=== PATIENT | male | born 1960 | race Caucasian/White ===

== ENCOUNTER 2021-06-14 09:33 | Outpatient (REF) | payer OTHER, SELFPAY ==
--- NOTE | ~2021-06-14 | XR_ITS ---
EXAMINATION: XR KNEE, LEFT CLINICAL INFORMATION: Sprain. COMPARISON: None TECHNIQUE: Four views of the left knee. FINDINGS: The tricompartment joint space is maintained, normal. No bony erosive changes, loose bodies or suprapatellar joint effusion is seen. There is a mild to moderate-sized anterior suprapatellar enthesophyte and soft tissue calcification along the quadriceps tendon insertion. No soft tissue swelling seen. XR/XR knee LT 4V IMPRESSION: No acute fracture or dislocation or joint effusion. Moderate-sized anterior suprapatellar enthesophyte. Soft tissue calcification at the insertion site of the quadriceps tendon to the patella. This may be secondary to old injury.
[2021-06-16 05:06] LABS: Lyme Abs Screen <0.90 index
== END 2021-06-14 09:34 | disposition home or self-care (01) ==
LOC: HO.HMGCX 09:33
PROVIDERS: PCP Nurse Practitioner Family; Visit Provider Internal Medicine
DX: S83.92XA Sprain of unspecified site of left knee, initial encounter (principal)
CPT/HCPCS: 36415; 73564; 86617; 86618

== ENCOUNTER 2021-10-01 07:21 | Outpatient (REF) | payer OTHER, SELFPAY ==
[2021-10-01 11:47] LABS: Appearance Urine HAZY; Color Urine YELLOW; Glucose Urine UA NEG (NEG); Leukocyte Esterase Urine NEG (NEG); Nitrite Urine NEG (NEG); Specific Gravity - Urine 1.015 (1.005-1.025); Urine Blood NEG (NEG); Urine Ketones NEG (NEG); Urine Protein NEG (NEG-TRACE)
[2021-10-01 12:27] LABS: Prostate Specific Antigen Scr 0.49 ng/mL (<0.05-4.0)
[2021-10-01 12:39] LABS: Alanine Aminotransferase 24 U/L (0-40); Albumin Level 4.3 g/dL (3.5-5.0); Alkaline Phosphatase 66 U/L (39-117); Anion Gap 9 (12-20); Aspartate Amino Transferase 21 U/L (5-37); Bilirubin Total 0.5 mg/dL (0.0-1.0); Blood Urea Nitrogen 11 mg/dL (9-16); Calcium 8.9 mg/dL (8.4-10.2); Carbon Dioxide 29 mmol/L (22-29); Chloride 104 mmol/L (96-108); Cholesterol 187 mg/dL; Estimated Glomerular Filt Rate > 60; Glucose Fasting 97 mg/dL (60-99); HDL Cholesterol 49 mg/dL; LDL Cholesterol Calculated 124 mg/dl; Potassium 4.3 mmol/L (3.3-5.1); Sodium 138 mmol/L (135-145); Total Protein 6.8 g/dL (6.5-8.0); Triglycerides 70 mg/dL
[2021-10-01 13:16] LABS: Free T4 (Free Thyroxine) 0.76 ng/dL (0.71-1.85)
== END 2021-10-01 07:22 | disposition home or self-care (01) ==
LOC: HO.HMGCLDS 07:21
PROVIDERS: PCP Nurse Practitioner Family; Visit Provider Nurse Practitioner Family
DX: Z00.00 Encounter for general adult medical examination without abnormal findings (principal); Z12.5 Encounter for screening for malignant neoplasm of prostate
CPT/HCPCS: 36415; 80053; 80061; 81003; 84153; 84439; 84443

== ENCOUNTER 2021-10-02 12:36 | Outpatient (REF) | payer OTHER, SELFPAY ==
[2021-10-02 16:00] LABS: Free T4 (Free Thyroxine) 0.67 ng/dL (0.71-1.85)
== END 2021-10-02 12:37 | disposition home or self-care (01) ==
LOC: HO.HMGCLDS 12:36
PROVIDERS: PCP Nurse Practitioner Family; Visit Provider Nurse Practitioner Family
DX: R79.89 Other specified abnormal findings of blood chemistry (principal)
CPT/HCPCS: 36415; 84439; 84443

== ENCOUNTER 2021-12-04 12:38 | Outpatient (REF) | payer OTHER, SELFPAY ==
--- NOTE | ~2021-12-04 | US_ITS ---
EXAMINATION: US PELVIS, LIMITED/FOLLOW UP CLINICAL INFORMATION: Left lower quadrant pain. Rule out hernia. COMPARISON: None TECHNIQUE: Grayscale and color imaging of the left inguinal region using a linear transducer FINDINGS: No hernia is seen. No adenopathy is seen. The left common femoral vein and common femoral artery are patent. US/US pelvic limited IMPRESSION: No hernia is seen.
== END 2021-12-04 12:39 | disposition home or self-care (01) ==
LOC: HO.US 12:38
PROVIDERS: PCP Nurse Practitioner Family; Visit Provider Nurse Practitioner Family
DX: R10.32 Left lower quadrant pain (principal)
CPT/HCPCS: 76857

== ENCOUNTER 2021-12-10 07:31 | Outpatient (REF) | payer OTHER, SELFPAY ==
[2021-12-10 12:33] LABS: TSH reflex Free T4 1.94 uIU/mL (0.32-4.0)
== END 2021-12-10 07:32 | disposition home or self-care (01) ==
LOC: HO.HMGCLDS 07:31
PROVIDERS: Visit Provider Nurse Practitioner Family
DX: E03.9 Hypothyroidism, unspecified (principal)
CPT/HCPCS: 36415; 84443

== ENCOUNTER 2022-05-23 07:17 | Outpatient (REF) | payer OTHER, SELFPAY ==
[2022-05-23 11:50] LABS: Appearance Urine TURBID; Color Urine YELLOW; Glucose Urine UA NEG (NEG); Leukocyte Esterase Urine NEG (NEG); Nitrite Urine NEG (NEG); PH 5.5 (5.0-8.0); Specific Gravity - Urine >= 1.030 (1.005-1.025); UACC Culture Trigger NO; Urine Blood TRACE (NEG); Urine Ketones NEG (NEG); Urine Protein TRACE MG/DL (NEG-TRACE)
[2022-05-23 12:02] LABS: Alanine Aminotransferase 18 U/L (0-40); Albumin Level 4.3 g/dL (3.5-5.0); Alkaline Phosphatase 78 U/L (39-117); Anion Gap 13 (12-20); Aspartate Amino Transferase 18 U/L (5-37); Bilirubin Total 0.9 mg/dL (0.0-1.0); Blood Urea Nitrogen 15 mg/dL (9-16); Calcium 8.7 mg/dL (8.4-10.2); Carbon Dioxide 24 mmol/L (22-29); Chloride 105 mmol/L (96-108); Cholesterol 174 mg/dL; Estimated Glomerular Filt Rate > 60; Glucose Fasting 112 mg/dL (60-99); HDL Cholesterol 49 mg/dL; LDL Cholesterol Calculated 105 mg/dl; Potassium 3.9 mmol/L (3.3-5.1); Sodium 138 mmol/L (135-145); Total Protein 6.9 g/dL (6.5-8.0); Triglycerides 103 mg/dL
[2022-05-23 12:03] LABS: TSH reflex Free T4 1.63 uIU/mL (0.32-4.0)
[2022-05-23 14:21] LABS: RBC Urine 0 /HPF (0); WBC Urine 0 /HPF (0-4)
[2022-05-23 14:22] LABS: Amorphous Sediment Urine 4+ /LPF
[2022-05-27 18:11] LABS: Thyroid Peroxidase Antibodies >900 IU/mL (<9)
== END 2022-05-23 07:18 | disposition home or self-care (01) ==
LOC: HO.HMGCLDS 07:17
PROVIDERS: Visit Provider Nurse Practitioner Family
DX: E03.9 Hypothyroidism, unspecified (principal); R79.89 Other specified abnormal findings of blood chemistry
CPT/HCPCS: 36415; 80053; 80061; 81001; 84443; 86376

== ENCOUNTER 2022-06-11 07:26 | Outpatient (REF) | payer OTHER, SELFPAY ==
[2022-06-11 11:41] LABS: Urine Cytology See Pathology rpt
[2022-06-11 12:13] LABS: Appearance Urine CLEAR; Color Urine YELLOW; Glucose Urine UA NEG (NEG); Leukocyte Esterase Urine NEG (NEG); Nitrite Urine NEG (NEG); Specific Gravity - Urine 1.025 (1.005-1.025); Urine Blood NEG (NEG); Urine Ketones NEG (NEG); Urine Protein NEG (NEG-TRACE)
[2022-06-11 12:37] LABS: Mucus Urine 1+ /LPF; RBC Urine 0 /HPF (0); WBC Urine 0 /HPF (0-4)
== END 2022-06-11 07:27 | disposition home or self-care (01) ==
LOC: HO.HMGCLDS 07:26
PROVIDERS: Visit Provider Nurse Practitioner Family
DX: R31.29 Other microscopic hematuria (principal)
CPT/HCPCS: 81001; 81003; 87086; 88112

== ENCOUNTER 2022-08-05 09:28 | Outpatient (REF) | payer OTHER, SELFPAY ==
[2022-08-05 11:46] LABS: Alanine Aminotransferase 20 U/L (0-40); Albumin Level 4.4 g/dL (3.5-5.0); Alkaline Phosphatase 71 U/L (39-117); Aspartate Amino Transferase 20 U/L (5-37); Bilirubin Direct 0.2 mg/dL (0.0-0.5); Bilirubin Total 0.6 mg/dL (0.0-1.0); Total Protein 7.1 g/dL (6.5-8.0)
== END 2022-08-05 09:29 | disposition home or self-care (01) ==
LOC: HO.HMGCLDS 09:28
PROVIDERS: PCP Nurse Practitioner Family; Visit Provider Podiatrist
DX: B35.1 Tinea unguium (principal)
CPT/HCPCS: 36415; 80076

== ENCOUNTER 2022-12-04 13:55 | Outpatient (REF) | payer BC, SELFPAY ==
[2022-12-04 16:32] LABS: Urine Cytology See Pathology rpt
== END 2022-12-04 13:56 | disposition home or self-care (01) ==
LOC: HO.LAB 13:55
PROVIDERS: PCP Nurse Practitioner Family; Visit Provider Urology
DX: R31.29 Other microscopic hematuria (principal); N40.0 Benign prostatic hyperplasia without lower urinary tract symptoms
CPT/HCPCS: 51798; 88112

== ENCOUNTER 2023-01-06 07:24 | Outpatient (REF) | payer BC, SELFPAY ==
[2023-01-06 11:43] LABS: PSA,Total (Free>4and<10) 0.63 ng/mL (0.00-4.00)
== END 2023-01-06 07:25 | disposition home or self-care (01) ==
LOC: HO.HMGCLDS 07:24
PROVIDERS: PCP Nurse Practitioner Family; Visit Provider Urology
DX: Z12.5 Encounter for screening for malignant neoplasm of prostate (principal); N40.0 Benign prostatic hyperplasia without lower urinary tract symptoms
CPT/HCPCS: 36415; 84153

== ENCOUNTER 2023-01-08 08:58 | Outpatient (REF) | payer BC, SELFPAY ==
--- NOTE | ~2023-01-08 | CT_ITS ---
EXAMINATION: CT ABDOMEN AND PELVIS WITHOUT AND WITH CONTRAST CLINICAL INFORMATION: Hematuria COMPARISON: Previous pelvic ultrasound November 2021 TECHNIQUE: Noncontrast CT of the abdomen and pelvis is performed followed by split bolus contrast-enhanced images using 85 mL Omnipaque 350 contrast.? Postcontrast imaging is performed during the combined nephrogram and excretion phase. Sagittal and coronal reformatted images were obtained on the technologist's workstation for both the precontrast and postcontrast phases. This CT examination was performed using dose optimization techniques as appropriate, variously including the following: *Automated exposure control *Adjustment of mA and/or kV according to patient size (this includes techniques or standardized protocols for targeted exams where dose is matched to indication/reason for exam; i.e. extremities or head) *Use of iterative reconstruction technique DLP: 839 mGy-cm FINDINGS: LUNG BASES: Small calcified pulmonary nodules lung bases suggestive of calcified granulomas. LIVER, GALLBLADDER, AND BILIARY TREE: The liver is low in attenuation suggestive of fatty infiltration. The gallbladder is been removed. No focal liver lesion or biliary duct dilatation. PANCREAS: Unremarkable. SPLEEN: Unremarkable. ADRENAL GLANDS: Unremarkable. KIDNEYS AND URETERS: The kidneys are normal in size, shape, and attenuation. No hydronephrosis, hydroureter, or calculi seen. No perinephric stranding. The collecting systems are normal. The ureters are normal. BLADDER: There is abnormal soft tissue seen at the base of the bladder for example sagittal reconstructed image 60 and coronal reconstructed image 59. It is uncertain whether this is related to the prostate gland. GASTROINTESTINAL TRACT: Diverticulosis of the colon. The small and large bowel are otherwise unremarkable. The appendix is unremarkable. ABDOMINAL WALL: Small umbilical and left inguinal hernias containing fat. LYMPH NODES: Normal. VASCULAR: Unremarkable. PELVIC VISCERA: The prostate gland does not appear enlarged. The prostate gland protrudes slightly into the base of the bladder. OSSEUS STRUCTURES: Degenerative changes of the spine and hip joints, left greater than right. Sclerotic lesion in the L1 vertebral body measuring 8 mm and small sclerotic foci in the bilateral femoral head and acetabulum measuring 3 mm, nonspecific. CT/CT urogram IMPRESSION: Normal-appearing kidneys, collecting systems and ureters. Small area of abnormal soft tissue at the base of the bladder. It is uncertain whether this is related to the prostate gland. The prostate gland does not appear enlarged. Mild fatty infiltration of the liver. Diverticulosis. Small nonspecific sclerotic bone lesions in the L1 vertebral body and pelvis.
[2023-01-08] MEDS: iohexoL 350 MG/ML 100 ML INFUS..BTL IV (10:12)
[2023-01-09 08:48] LABS: Creatinine POC 0.9 mg/dL (0.5-1.4); GFR POC > 60
== END 2023-01-08 08:59 | disposition home or self-care (01) ==
LOC: HO.CT 08:58
PROVIDERS: Visit Provider Urology
DX: R31.9 Hematuria, unspecified (principal)
CPT/HCPCS: 74178; 82565; Q9967

== ENCOUNTER 2023-07-30 14:56 | Outpatient (AMB) | payer BC, SELFPAY ==
[2023-07-30 15:05] VITALS: BP 130/82; PULSE 64; O2SAT 96; BMI 25.4
--- NOTE | 2023-07-30 15:05 | A.OFFPC_ITS ---
Vital Signs 07/30/23 15:05 Height 5 ft 11.6 in Weight 185 lb 2 oz BMI 25.4 BP 130/82 Blood Pressure Location Rt brachial Position Sitting Pulse 64 Pulse Source Pulse Oximeter Pulse Oximetry (%) 96 Oxygen Delivery Method Room Air Intake Visit Reasons: Med review Allergies atorvastatin Allergy (Unknown, Verified 07/30/23 15:07) Hives Medication List - Last Reconciled 07/30/23 by NAI Enamorado levothyroxine 100 mcg PO DAILY Tobacco use date assessed: 07/30/23 Fall risk assessment: No Falls in past year Last assessed Fall Risk: 07/30/23 Dental Screening Did you have a dental visit in the last 12 months?: No Did you have a dental problem in the last 6 months where you did not have access to dental care?: No Was dental information given to patient?: No HPI Med review HPI Details Pt is here for a PE. Will order labs. Colon screen is up to date. PSA is up to date. Denies dribbling with urination, weak stream, and nocturia. Pt is a smoker, part of the low-dose CT program. Refuses KATIE today. 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 Social History Housing: House Alcohol intake: current Alcohol intake frequency: holidays/special occasions only Patient Tobacco Use Status: Current everyday Tobacco user Cigarettes Per Day: 12 e-Cigarette/Vaping Use: Never Used Second Hand Smoke Exposure: No service: No Current occupational status: employed Current occupation: [employer] Current occupational exposures/hazards: No Cognitive needs: No Hearing needs: No Vision needs: No Questionnaire Thrive Questionnaire Date Thrive assessed: 09/26/21 Review of Systems Const Denies chills and Denies fever(s) Eyes Denies blurry vision ENT Denies vertigo, Denies dizziness and Denies sore throat Card Denies chest pain at rest, Denies chest pain with activity, Denies diaphoresis, Denies dyspnea and Denies dyspnea on exertion Resp Denies cough, Denies dyspnea, Denies dyspnea on exertion and Denies wheezing GI Denies abdominal pain, Denies melena, Denies hematochezia, Denies constipation, Denies diarrhea and Denies loose stools Denies hematuria Musc Denies numbness and Denies tingling Skin/Breast Denies lesions Neuro Denies vertigo, Denies dizziness, Denies numbness and Denies tingling Psych Denies anxiety, Denies depression, Denies homicidal ideation, Denies suicidal ideation and Denies other (substance abuse) Aller/Immun Denies wheezing Physical exam (Primary Care) Vital Signs: Last Vital Signs Pulse 64 07/30/23 15:05 BP 130/82 07/30/23 15:05 Pulse Ox 96 07/30/23 15:05 Oxygen Delivery Method Room Air 07/30/23 15:05 BMI result Body Mass Index 25.4 Tobacco/Smoking Status: Tobacco use Status Tobacco use date assessed 07/30/23 07/30/23 15:10 Patient Tobacco Use Status Current everyday Tobacco 07/30/23 15:10 e-Cigarette/Vaping Use Never Used 07/30/23 15:10 Thrive Assessment: Date of Thrive Assessment Date Thrive assessed 09/26/21 07/30/23 15:10 Const General: cooperative Nutritional Appearance: well nourished Orientation/consciousness: patient oriented x3 HENMT Head: Yes normal to inspection, Yes normocephalic and Yes atraumatic Ears: TM's normal bilaterally Eyes General: appearance normal, both eyes and all related structures Alignment and Position: alignment normal and position normal Neck Neck: Yes normal visual inspection and Yes no lymphadenopathy Thyroid: Thyroid normal Resp Other: lungs diminished though moving air Effort & Inspection: normal respiratory effort Cardio Rate: regular rate Rhythm: regular rhythm Heart sounds: S1 normal heart sound present, S2 normal heart sound present and no murmurs GI Palpation (GI): Soft to palpation and nontender Auscultation: normal bowel sounds Male General Exam: Yes normal external exam Penis: normal penis Scrotum: scrotum normal, testes descended bilaterally and no inguinal hernias Testes: no testicular mass Skin Other: right congregation (raised lesion-dark), right forehead (dark lesion), 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 left anterior trap/collar bone region with large dark, slightly raised lesion Rashes: no rashes Neuro General: patient oriented x3, moves all extremities, no focal motor deficits and deep tendon reflexes 2+ bilaterally Romberg Test: Negative Psych Appearance: grossly normal Mental Status: mental status grossly normal Speech and movement: Normal speech and movement present Affect: normal affect Attitude: cooperative Thought process: Normal thought process present Thought content: Normal thought content present Insight: Good insight present (Psych) Judgement: Good judgement present (Psych) Assessment and Plan Assessment & Plan (1) Physical exam: Code(s): Z00.00 - Encounter for general adult medical examination without abnormal findings Plan: Labs ordered (2) Screening PSA (prostate specific antigen): Code(s): Z12.5 - Encounter for screening for malignant neoplasm of prostate (3) Skin lesions: Code(s): L98.9 - Disorder of the skin and subcutaneous tissue, unspecified Plan The patient agreed to the use of a biomedical engineering supervisor for this encounter. Scribed for NAI Cole by Natalia Edmonds biomedical engineering supervisor, on 07/30/2023 at 15:15 EST. Orders: Orders Complete Blood Count Auto Diff Today Z00.00 - Encounter for general adult medical examination without abnormal findings Comprehensive [place]. Panel Fast Today Z00.00 - Encounter for general adult medical examination without abnormal findings TSH reflex Free T4 Today Z00.00 - Encounter for general adult medical examination without abnormal findings Lipid Panel Today Z00.00 - Encounter for general adult medical examination without abnormal findings Prostate Specific Antigen Scr Today Z12.5 - Encounter for screening for malignant neoplasm of prostate UA CC w/rflx Micro + Cult Today Z00.00 - Encounter for general adult medical examination without abnormal findings Referrals Dermatology Referral L98.9 - Disorder of the skin and subcutaneous tissue, unspecified Coding Level of Care Code Est Pt Prev Care >65y(13550) Diagnoses Physical exam Z00.00 Screening PSA (prostate specific antigen) Z12.5 Skin lesions L98.9
== END 2023-07-30 15:51 | disposition home or self-care (01) ==
PROVIDERS: PCP Nurse Practitioner Family; Visit Provider Nurse Practitioner Family
DX: Z00.00 Encounter for general adult medical examination without abnormal findings (principal); Z12.5 Encounter for screening for malignant neoplasm of prostate; L98.9 Disorder of the skin and subcutaneous tissue, unspecified
CPT/HCPCS: 99397

== ENCOUNTER 2023-08-12 07:22 | Outpatient (REF) | payer BC, SELFPAY ==
[2023-08-12 11:25] LABS: MANUAL DIFF FLAG NO
[2023-08-12 11:37] LABS: Eosinophils Absolute Auto 0.2 X10*3/uL (0.0-0.4); Eosinophils Percent Auto 4.7 % (0-4); Hematocrit 43.9 % (42.0-52.0); Hemoglobin 14.6 g/dl (14.0-18.0); Imm Gran Abs Auto 0.01 X10*3/uL (0.00-0.03); Imm Gran Pct Auto 0.2 % (0.0-0.4); Lymphocytes Absolute Auto 1.1 X10*3/uL (1.2-4.9); Lymphocytes Percent Auto 28.2 % (20-40); Mean Corpuscular HGB Conc 33.3 g/dl (31.0-36.0); Mean Corpuscular Volume 90.3 fL (80.0-98.0); Mean Platelet Volume 10.8 fL (9.4-12.4); Monocytes Absolute Auto 0.3 X10*3/uL (0.1-1.2); Monocytes Percent Auto 8.4 % (2-11); Neutrophils Absolute Auto 2.3 x10*3/uL (2.0-8.3); Neutrophils Percent Auto 57.5 % (45-73); Platelet Count 255 X10*3/uL (160-400); Red Blood Count 4.86 X10*6/uL (4.60-5.80); Red Cell Distribution Width 12.6 % (11.0-16.0)
[2023-08-12 12:15] LABS: Prostate Specific Antigen Scr 0.76 ng/mL (<0.05-4.0)
[2023-08-12 12:16] LABS: Alanine Aminotransferase 13 U/L (0-40); Albumin Level 4.3 g/dL (3.5-5.0); Alkaline Phosphatase 69 U/L (39-117); Anion Gap 11 (12-20); Aspartate Amino Transferase 17 U/L (5-37); Bilirubin Total 0.5 mg/dL (0.0-1.0); Blood Urea Nitrogen 12 mg/dL (9-16); Calcium 9.2 mg/dL (8.4-10.2); Carbon Dioxide 25 mmol/L (22-29); Chloride 107 mmol/L (96-108); Cholesterol 187 mg/dL (<200); Estimated Glomerular Filt Rate > 60; Glucose Fasting 102 mg/dL (60-99); HDL Cholesterol 50 mg/dL (>40); LDL Cholesterol Calculated 127 mg/dL (<100); Potassium 4.3 mmol/L (3.3-5.1); Sodium 139 mmol/L (135-145); TSH reflex Free T4 0.79 uIU/mL (0.32-4.0); Triglycerides 53 mg/dL (<150)
[2023-08-12 14:15] LABS: Appearance Urine Clear; Color Urine Yellow; Glucose Urine UA Negative (Negative); Leukocyte Esterase Urine Negative (Negative); Nitrite Urine Negative (Negative); Urine Blood Negative (Negative); Urine Ketones Negative (Negative); Urine Protein Negative (Neg-Trace)
== END 2023-08-12 07:23 | disposition home or self-care (01) ==
LOC: HO.HMGCLDS 07:22
PROVIDERS: PCP Nurse Practitioner Family; Visit Provider Nurse Practitioner Family
DX: Z00.00 Encounter for general adult medical examination without abnormal findings (principal); Z12.5 Encounter for screening for malignant neoplasm of prostate; E78.5 Hyperlipidemia, unspecified; R94.6 Abnormal results of thyroid function studies; E03.9 Hypothyroidism, unspecified; D72.819 Decreased white blood cell count, unspecified; Z72.0 Tobacco use
CPT/HCPCS: 36415; 80053; 80061; 81003; 84153; 84443; 85025

== ENCOUNTER 2023-10-06 09:08 | Outpatient (REF) | payer BC, SELFPAY ==
[2023-10-06 11:20] LABS: MANUAL DIFF FLAG NO
[2023-10-06 11:39] LABS: Basophils Absolute Auto 0.1 X10*3/uL (0.0-0.2); Eosinophils Absolute Auto 0.1 X10*3/uL (0.0-0.4); Eosinophils Percent Auto 2.3 % (0-4); Hematocrit 43.9 % (42.0-52.0); Hemoglobin 14.9 g/dl (14.0-18.0); Imm Gran Abs Auto 0.02 X10*3/uL (0.00-0.03); Imm Gran Pct Auto 0.4 % (0.0-0.4); Lymphocytes Absolute Auto 1.4 X10*3/uL (1.2-4.9); Lymphocytes Percent Auto 26.8 % (20-40); Mean Corpuscular HGB Conc 33.9 g/dl (31.0-36.0); Mean Corpuscular Hemoglobin 30.1 pg (27.0-33.0); Mean Corpuscular Volume 88.7 fL (80.0-98.0); Mean Platelet Volume 10.6 fL (9.4-12.4); Monocytes Absolute Auto 0.4 X10*3/uL (0.1-1.2); Monocytes Percent Auto 6.7 % (2-11); Neutrophils Absolute Auto 3.3 x10*3/uL (2.0-8.3); Neutrophils Percent Auto 62.8 % (45-73); Platelet Count 272 X10*3/uL (160-400); Red Blood Count 4.95 X10*6/uL (4.60-5.80); Red Cell Distribution Width 12.5 % (11.0-16.0); White Blood Count 5.2 X10*3/uL (4.8-10.8)
== END 2023-10-06 09:09 | disposition home or self-care (01) ==
LOC: HO.HMGCLDS 09:08
PROVIDERS: PCP Nurse Practitioner Family; Visit Provider Nurse Practitioner Family
DX: D72.819 Decreased white blood cell count, unspecified (principal)
CPT/HCPCS: 36415; 85025

== ENCOUNTER 2023-10-27 07:20 | Outpatient (REF) | payer BC, SELFPAY ==
[2023-10-27 12:13] LABS: Alanine Aminotransferase 13 U/L (0-40); Albumin Level 4.2 g/dL (3.5-5.0); Alkaline Phosphatase 71 U/L (39-117); Anion Gap 11 (12-20); Aspartate Amino Transferase 17 U/L (5-37); Bilirubin Total 0.6 mg/dL (0.0-1.0); Blood Urea Nitrogen 13 mg/dL (9-16); Calcium 9.1 mg/dL (8.4-10.2); Carbon Dioxide 28 mmol/L (22-29); Chloride 105 mmol/L (96-108); Cholesterol 180 mg/dL (<200); Estimated Glomerular Filt Rate > 60; Glucose Fasting 97 mg/dL (60-99); HDL Cholesterol 53 mg/dL (>40); LDL Cholesterol Calculated 117 mg/dL (<100); Potassium 4.3 mmol/L (3.3-5.1); Sodium 140 mmol/L (135-145); Total Protein 6.9 g/dL (6.5-8.0); Triglycerides 51 mg/dL (<150)
== END 2023-10-27 07:21 | disposition home or self-care (01) ==
LOC: HO.HMGCLDS 07:20
PROVIDERS: PCP Nurse Practitioner Family; Visit Provider Nurse Practitioner Family
DX: E78.5 Hyperlipidemia, unspecified (principal)
CPT/HCPCS: 36415; 80053; 80061

== ENCOUNTER 2024-02-09 08:16 | Outpatient (AMB) | payer BC, SELFPAY ==
--- NOTE | 2024-02-09 08:22 | A.OFFPC_ITS ---
Vital Signs 02/09/24 08:23 Height 5 ft 11 in Weight 190 lb BMI 26.5 BP 132/82 Blood Pressure Location Lt brachial Position Sitting Pulse 66 Pulse Source Pulse Oximeter Pulse Oximetry (%) 96 Intake Visit Reasons: 6 month fu Intake Note: pt is here for 6 month follow up Tax Investigator Required: No Accompanied by: Self / Same As Patient Allergies atorvastatin Allergy (Unknown, Verified 02/09/24 09:08) Hives Medication List - Last Reconciled 02/09/24 by NAI Enamorado ezetimibe 10 mg PO DAILY 90 days levothyroxine 100 mcg PO DAILY Tobacco use date assessed: 02/09/24 Fall risk assessment: No Falls in past year Last assessed Fall Risk: 02/09/24 Dental Screening Dental Screen Date: 02/09/24 Did you have a dental visit in the last 12 months?: No Did you have a dental problem in the last 6 months where you did not have access to dental care?: No Was dental information given to patient?: Patient declined HPI 6 month fu HPI Details Dyslipidemia: On ezetimibe 10mg. Pt can not tolerate statins. Will order labs. Pt is a smoker, part of the low-dose CT program. Denies chest pain, shortness of breath, and dizziness. 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 Social History Housing: House Alcohol intake: current Alcohol intake frequency: holidays/special occasions only Patient Tobacco Use Status: Current everyday Tobacco user Cigarettes Per Day: 12 e-Cigarette/Vaping Use: Never Used Second Hand Smoke Exposure: No service: No Current occupational status: employed Current occupation: [employer] Current occupational exposures/hazards: No Cognitive needs: No Hearing needs: No Vision needs: No Questionnaire PHQ-9 Over the last 2 weeks, how often have you been bothered by any of the following problems? 1. Little interest or pleasure in doing things: not at all 2. Feeling down, depressed, or hopeless: not at all 3. Trouble falling or staying asleep, or sleeping too much: not at all 4. Feeling tired or having little energy: not at all 5. Poor appetite or overeating: not at all 6. Feeling bad about yourself - or that you are a failure or have let yourself or your family down: not at all 7. Trouble concentrating on things, such as reading the newspaper or watching television: not at all 8. Moving or speaking so slowly that other people could have noticed. Or the opposite - being so fidgety or restless that you have been moving around a lot more than usual: not at all 9. Thoughts that you would be better off or of hurting yourself in some way: not at all Total score: 0 Depression Screening Interpretation: Negative Depression Screening Done: Yes 79420 - PHQ-9 Billing: Yes Source: Developed by Drs. Cornelius Woodruff, Bethany Petersen, Arvind Cortez and colleagues, with an educational chandni from [employer]. Thrive Questionnaire Date Thrive assessed: 02/09/24 I am a: Patient What is your living situation today?: I have a steady place to live Within the past 12 months, did the food you bought not last and you didn't have the money to get more?: Never true Within the past 12 months, did you worry whether your food would run out before you got money to buy more?: Never true Do you have trouble paying for medicines?: No Do you have trouble getting transportation to medical appointments?: No Do you have trouble paying your heating and electricity bill?: No Do you have trouble taking care of your child, family member or friend?: No Do you have trouble with day-to-day activities such as bathing, preparing meals, shopping, managing finances, etc.?: No Are you currently unemployed and looking for a job?: No Are you interested in more education?: No Please select the resources that you would like help with: None Currently or been in a relationship where the following occur: no concerns reported THRIVE Score: 0 AUDIT C Alcohol Use Questionnaire (AUDIT-C) 1. How often do you have a drink containing alcohol?: Never 3. How often do you have six or more drinks on one occasion?: Never Total Score: 0 Score Reviewed/Action Taken: Yes ANDREW-7 AMB Questionnaire ANDREW-7 Date ANDREW - 7 assessed: 02/09/24 Feeling nervous, anxious, or on edge: 0 = Not at all Not being able to stop or control worryin = Not at all Worrying too much about different things: 0 = Not at all Trouble relaxin = Not at all Being so restless that it is hard to sit still: 0 = Not at all Becoming easily annoyed or irritable: 0 = Not at all Feeling afraid as if something awful might happen: 0 = Not at all Total ADNREW-7 score (0-4 normal; 5-9 mild; 10-14 moderate; 15-21 severe): 0 Source: Developed by Drs. Cornelius Woodruff, Bethany Petersen, Arvind Cortez and colleagues, with an educational chandni from [employer]. ANDREW-7 Assessment Billing ANDREW-7 Assessment Tool: ANDREW-7 Assessment 78244 Review of Systems Const Reports as per HPI Physical exam (Primary Care) Vital Signs: Last Vital Signs Pulse 66 02/09/24 08:23 BP 132/82 02/09/24 08:23 Pulse Ox 96 02/09/24 08:23 BMI result Body Mass Index 26.5 Tobacco/Smoking Status: Tobacco use Status Tobacco use date assessed 02/09/24 02/09/24 08:32 Patient Tobacco Use Status Current everyday Tobacco 02/09/24 08:24 e-Cigarette/Vaping Use Never Used 02/09/24 08:24 PHQ-9: PHQ-9 Score PHQ-9: Total score 0 02/09/24 08:51 Depression Screening Interpretation: Negative Thrive Assessment: Date of Thrive Assessment Date Thrive assessed 02/09/24 02/09/24 08:32 Currently or been in a relationship where the following occur: no concerns reported Const General: cooperative Orientation/consciousness: patient oriented x3 Resp Effort & Inspection: normal respiratory effort Auscultation: clear to auscultation bilaterally Cardio Rate: regular rate Rhythm: regular rhythm Heart sounds: S1 normal heart sound present and S2 normal heart sound present Bruits: no carotid bruits Neuro General: patient oriented x3 Psych Appearance: grossly normal Mental Status: mental status grossly normal Speech and movement: Normal speech and movement present Affect: normal affect Attitude: cooperative Thought process: Normal thought process present Thought content: Normal thought content present Insight: Good insight present (Psych) Judgement: Good judgement present (Psych) Assessment and Plan Assessment & Plan (1) Dyslipidemia: Code(s): E78.5 - Hyperlipidemia, unspecified Plan: Labs ordered Plan The patient agreed to the use of a medical massage therapist for this encounter. Scribed for NAI Cole by Natalia Edmonds medical massage therapist, on 02/09/2024 at 08:50 EST. Orders: Orders Complete Blood Count Auto Diff Today E78.5 - Hyperlipidemia, unspecified Comprehensive [place]. Panel Fast Today E78.5 - Hyperlipidemia, unspecified Lipid Panel Today E78.5 - Hyperlipidemia, unspecified Coding Level of Care Code Est Pt Level 3 (96935) Diagnoses Dyslipidemia E78.5 Additional Codes ANDREW-7 Assessment Billing - ANDREW-7 Assessment Tool: ANDREW-7 Assessment 22840 ([id number])
[2024-02-09 08:23] VITALS: BP 132/82; PULSE 66; O2SAT 96; BMI 26.5
== END 2024-02-09 09:06 | disposition home or self-care (01) ==
PROVIDERS: PCP Nurse Practitioner Family; Visit Provider Nurse Practitioner Family
DX: E78.5 Hyperlipidemia, unspecified (principal)
CPT/HCPCS: 99213

== ENCOUNTER 2024-02-13 07:12 | Outpatient (REF) | payer BC, SELFPAY ==
[2024-02-13 10:26] LABS: MANUAL DIFF FLAG NO
[2024-02-13 10:52] LABS: Basophils Absolute Auto 0.1 X10*3/uL (0.0-0.2); Basophils Percent Auto 1.1 % (0-2); Eosinophils Absolute Auto 0.2 X10*3/uL (0.0-0.4); Hematocrit 43.3 % (42.0-52.0); Hemoglobin 14.7 g/dl (14.0-18.0); Imm Gran Abs Auto 0.02 X10*3/uL (0.00-0.03); Imm Gran Pct Auto 0.4 % (0.0-0.4); Lymphocytes Absolute Auto 1.4 X10*3/uL (1.2-4.9); Lymphocytes Percent Auto 30.6 % (20-40); Mean Corpuscular HGB Conc 33.9 g/dl (31.0-36.0); Mean Corpuscular Hemoglobin 30.2 pg (27.0-33.0); Mean Corpuscular Volume 89.1 fL (80.0-98.0); Mean Platelet Volume 10.6 fL (9.4-12.4); Monocytes Absolute Auto 0.3 X10*3/uL (0.1-1.2); Monocytes Percent Auto 7.4 % (2-11); Neutrophils Absolute Auto 2.5 x10*3/uL (2.0-8.3); Neutrophils Percent Auto 55.5 % (45-73); Platelet Count 233 X10*3/uL (160-400); Red Blood Count 4.86 X10*6/uL (4.60-5.80); Red Cell Distribution Width 12.7 % (11.0-16.0); White Blood Count 4.6 X10*3/uL (4.8-10.8)
[2024-02-13 11:08] LABS: Alanine Aminotransferase 16 U/L (0-40); Albumin Level 4.2 g/dL (3.5-5.0); Alkaline Phosphatase 73 U/L (39-117); Anion Gap 9 (12-20); Aspartate Amino Transferase 17 U/L (5-37); Bilirubin Total 0.4 mg/dL (0.0-1.0); Blood Urea Nitrogen 12 mg/dL (9-16); Carbon Dioxide 28 mmol/L (22-29); Chloride 106 mmol/L (96-108); Cholesterol 187 mg/dL (<200); Estimated Glomerular Filt Rate > 60; Glucose Fasting 101 mg/dL (60-99); HDL Cholesterol 54 mg/dL (>40); LDL Cholesterol Calculated 124 mg/dL (<100); Sodium 139 mmol/L (135-145); Triglycerides 47 mg/dL (<150)
== END 2024-02-13 07:13 | disposition home or self-care (01) ==
LOC: HO.HMGCLDS 07:12
PROVIDERS: PCP Nurse Practitioner Family; Visit Provider Nurse Practitioner Family
DX: E78.5 Hyperlipidemia, unspecified (principal)
CPT/HCPCS: 36415; 80053; 80061; 85025

== ENCOUNTER 2024-09-27 08:51 | Outpatient (AMB) | payer BC, SELFPAY ==
[2024-09-27 08:52] VITALS: BP 130/80; PULSE 72; O2SAT 97; BMI 25.9
--- NOTE | 2024-09-27 08:52 | A.OFFPC_ITS ---
Vital Signs 09/27/24 08:52 Height 5 ft 11 in Weight 186 lb BMI 25.9 BP 130/80 Blood Pressure Location Rt brachial Position Sitting Pulse 72 Pulse Source Pulse Oximeter Pulse Oximetry (%) 97 Intake Visit Reasons: PE Intake Note: pt is here for PE Optical Fabricator Required: No Accompanied by: Self / Same As Patient Allergies atorvastatin Allergy (Unknown, Verified 09/27/24 08:53) Hives Medication List - Last Reconciled 09/27/24 by NAI Enamorado levothyroxine 100 mcg PO DAILY Tobacco use date assessed: 02/09/24 Fall risk assessment: No Falls in past year Last assessed Fall Risk: 09/27/24 Dental Screening Dental Screen Date: 02/09/24 HPI PE HPI Details Pt is here for a PE. Will order labs. Colon screen is up to date. Due for PSA, will order. Denies dribbling with urination, weak stream, and frequent nocturia. Does get intermittent frequency (seen urology previously). Pt c/o lower back pain. He reports radicular symptoms down his LLE. Will send prednisone. Will order XR. Denies any signs of cauda equina. Pt has seen dermatology in the past. 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 Social History Housing: House Alcohol intake: current Alcohol intake frequency: holidays/special occasions only Patient Tobacco Use Status: Current everyday Tobacco user Cigarettes Per Day: 12 e-Cigarette/Vaping Use: Never Used Second Hand Smoke Exposure: No service: No Current occupational status: employed Current occupation: [employer] Current occupational exposures/hazards: No Cognitive needs: No Hearing needs: No Vision needs: No Questionnaire PHQ-9 Over the last 2 weeks, how often have you been bothered by any of the following problems? 68992 - PHQ-9 Billing: Patient declined-do not bill Source: Developed by Drs. Cornelius Woodruff, Bethany Petersen, Arvind Cortez and colleagues, with an educational chandni from [employer]. Thrive Questionnaire Date Thrive assessed: 09/27/24 I am a: Patient What is your living situation today?: I have a steady place to live Within the past 12 months, did the food you bought not last and you didn't have the money to get more?: Never true Within the past 12 months, did you worry whether your food would run out before you got money to buy more?: Never true Do you have trouble paying for medicines?: No Do you have trouble getting transportation to medical appointments?: No Do you have trouble paying your heating and electricity bill?: I choose not to answer this question Do you have trouble taking care of your child, family member or friend?: No Do you have trouble with day-to-day activities such as bathing, preparing meals, shopping, managing finances, etc.?: No Are you currently unemployed and looking for a job?: No Are you interested in more education?: No Please select the resources that you would like help with: None Currently or been in a relationship where the following occur: No concerns reported THRIVE Score: 0 AUDIT C Alcohol Use Questionnaire (AUDIT-C) 1. How often do you have a drink containing alcohol?: Monthly or less 2. How many drinks containing alcohol do you have on a typical day when you are drinking?: 3 or 4 3. How often do you have six or more drinks on one occasion?: Never Total Score: 2 Score Reviewed/Action Taken: Yes ANDREW-7 AMB Questionnaire ANDREW-7 Date ANDREW - 7 assessed: 09/27/24 Feeling nervous, anxious, or on edge: 0 = Not at all Not being able to stop or control worryin = Not at all Worrying too much about different things: 0 = Not at all Trouble relaxin = Nearly every day Being so restless that it is hard to sit still: 0 = Not at all Becoming easily annoyed or irritable: 0 = Not at all Feeling afraid as if something awful might happen: 0 = Not at all Total ANDREW-7 score (0-4 normal; 5-9 mild; 10-14 moderate; 15-21 severe): 3 Source: Developed by Drs. Cornelius Woodruff, Bethany Petersen, Arvind Cortez and colleagues, with an educational chandni from [employer]. ANDREW-7 Assessment Billing ANDREW-7 Assessment Tool: ANDREW-7 Assessment 99108 Review of Systems Const Denies chills and Denies fever(s) Eyes Denies blurry vision ENT Denies vertigo, Denies dizziness and Denies sore throat Card Denies chest pain at rest, Denies chest pain with activity, Denies diaphoresis, Denies dyspnea and Denies dyspnea on exertion Resp Denies cough, Denies dyspnea, Denies dyspnea on exertion and Denies wheezing GI Denies abdominal pain, Denies melena, Denies hematochezia, Denies constipation, Denies diarrhea and Denies loose stools Denies hematuria Musc Reports back pain, Denies numbness and Denies tingling Skin/Breast Denies lesions Neuro Denies vertigo, Denies dizziness, Denies numbness and Denies tingling Psych Denies anxiety, Denies depression, Denies homicidal ideation, Denies suicidal ideation and Denies other (substance abuse) Aller/Immun Denies wheezing Physical exam (Primary Care) Vital Signs: Last Vital Signs Pulse 72 09/27/24 08:52 BP 130/80 09/27/24 08:52 Pulse Ox 97 09/27/24 08:52 BMI result Body Mass Index 25.9 Tobacco/Smoking Status: Tobacco use Status Tobacco use date assessed 02/09/24 09/27/24 08:53 Patient Tobacco Use Status Current everyday Tobacco 09/27/24 08:53 e-Cigarette/Vaping Use Never Used 09/27/24 08:53 Thrive Assessment: Date of Thrive Assessment Date Thrive assessed 09/27/24 09/27/24 08:53 Currently or been in a relationship where the following occur: No concerns reported Const General: cooperative Nutritional Appearance: well nourished Orientation/consciousness: patient oriented x3 HENMT Head: Yes normal to inspection, Yes normocephalic and Yes atraumatic Ears: TM's normal bilaterally Eyes General: appearance normal, both eyes and all related structures Alignment and Position: alignment normal and position normal Neck Neck: Yes normal visual inspection, Yes no lymphadenopathy and Yes supple Resp Effort & Inspection: normal respiratory effort Auscultation: clear to auscultation bilaterally Cardio Rate: regular rate Rhythm: regular rhythm Heart sounds: S1 normal heart sound present, S2 normal heart sound present and no murmurs GI Palpation (GI): Soft to palpation and nontender Auscultation: normal bowel sounds Male General Exam: Yes normal external exam Penis: normal penis Scrotum: scrotum normal, testes descended bilaterally and no inguinal hernias Testes: no testicular mass Back/Spine/Pelvis Other: radicular symptoms to left thigh with LLE raises, increased lower back pain with heel walking Skin Other: right forehead with raised lesion. 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 Rashes: no rashes Neuro General: patient oriented x3, moves all extremities, no focal motor deficits and deep tendon reflexes 2+ bilaterally Romberg Test: Negative Extrem Right lower extremity: no edema Left lower extremity: no edema Psych Appearance: grossly normal Mental Status: mental status grossly normal Speech and movement: Normal speech and movement present Affect: normal affect Attitude: cooperative Thought process: Normal thought process present Thought content: Normal thought content present Insight: Good insight present (Psych) Judgement: Good judgement present (Psych) Coding Level of Care Code Est Pt Prev Care >65y(15525) Diagnoses Screening PSA (prostate specific antigen) Z12.5 Vitamin D deficiency E55.9 Lower back pain M54.50 Encounter for routine adult physical exam with abnormal findings Z. Additional Codes ANDREW-7 Assessment Billing - ANDREW-7 Assessment Tool: ANDREW-7 Assessment 74316 ([id number]) Assessment & Plan Assessment & Plan (1) Screening PSA (prostate specific antigen): Code(s): Z12.5 - Encounter for screening for malignant neoplasm of prostate Category: Medical Plan: PSA ordered (2) Vitamin D deficiency: Code(s): E55.9 - Vitamin D deficiency, unspecified Category: Medical Plan: Labs ordered (3) Lower back pain: Code(s): M54.50 - Low back pain, unspecified Category: Medical Plan: XR and prednisone ordered, encouraged a stretching routine (4) Encounter for routine adult physical exam with abnormal findings: Code(s): Z00. - Encounter for general adult medical examination with abnormal findings Category: Medical Plan: Labs ordered Plan The patient agreed to the use of a medical observer for this encounter. Scribed for West Galarza, HIGHER LEVEL TEACHING ASSISTANT-BC by Natalia Edmonds, medical observer, on 09/27/2024 at 09:20 EST. Orders: Orders Complete Blood Count Auto Diff Today Z00.00 - Encounter for general adult medical examination without abnormal findings Comprehensive [place]. Panel Fast Today Z00.00 - Encounter for general adult medical examination without abnormal findings Vitamin D 25-OH Total Today E55.9 - Vitamin D deficiency, unspecified TSH reflex Free T4 Today Z00.00 - Encounter for general adult medical examination without abnormal findings UA CC w/rflx Micro + Cult Today Z00.00 - Encounter for general adult medical examination without abnormal findings Lipid Panel Today Z00.00 - Encounter for general adult medical examination without abnormal findings Prostate Specific Antigen Scr Today Z12.5 - Encounter for screening for malignant neoplasm of prostate XR lumbar spine 2-3V Today M54.50 - Low back pain, unspecified Medications: New prednisone 50 mg PO DAILY 5 days 5 tabs 0RF
== END 2024-09-27 09:28 | disposition home or self-care (01) ==
PROVIDERS: PCP Nurse Practitioner Family; Visit Provider Nurse Practitioner Family
DX: Z12.5 Encounter for screening for malignant neoplasm of prostate (principal); E55.9 Vitamin D deficiency, unspecified; M54.50 Low back pain, unspecified; Z00.01 Encounter for general adult medical examination with abnormal findings

== ENCOUNTER → 2024-09-27 08:51 | Outpatient (BNVA) | payer BC, SELFPAY | PROVIDERS: PCP Nurse Practitioner Family; Visit Provider Nurse Practitioner Family | DX: Z00.01 Encounter for general adult medical examination with abnormal findings (principal); E55.9 Vitamin D deficiency, unspecified; M54.50 Low back pain, unspecified | CPT/HCPCS: 96127 ==

== ENCOUNTER 2024-10-11 07:10 | Outpatient (REF) | payer BC, SELFPAY ==
[2024-10-11 10:04] LABS: MANUAL DIFF FLAG NO
[2024-10-11 10:05] LABS: Appearance Urine Clear; Color Urine Yellow; Glucose Urine UA Negative (Negative); Leukocyte Esterase Urine Negative (Negative); Nitrite Urine Negative (Negative); Specific Gravity - Urine 1.015 (1.005-1.025); Urine Blood Negative (Negative); Urine Ketones Negative (Negative); Urine Protein Negative (Neg-Trace)
[2024-10-11 10:08] LABS: Basophils Percent Auto 0.7 % (0-2); Eosinophils Absolute Auto 0.2 X10*3/uL (0.0-0.4); Eosinophils Percent Auto 3.9 % (0-4); Hematocrit 42.3 % (42.0-52.0); Hemoglobin 14.5 g/dl (14.0-18.0); Imm Gran Abs Auto 0.03 X10*3/uL (0.00-0.03); Imm Gran Pct Auto 0.5 % (0.0-0.4); Lymphocytes Absolute Auto 1.7 X10*3/uL (1.2-4.9); Lymphocytes Percent Auto 28.1 % (20-40); Mean Corpuscular HGB Conc 34.3 g/dl (31.0-36.0); Mean Corpuscular Hemoglobin 30.5 pg (27.0-33.0); Mean Corpuscular Volume 89.1 fL (80.0-98.0); Mean Platelet Volume 10.7 fL (9.4-12.4); Monocytes Absolute Auto 0.4 X10*3/uL (0.1-1.2); Monocytes Percent Auto 6.9 % (2-11); Neutrophils Absolute Auto 3.6 x10*3/uL (2.0-8.3); Neutrophils Percent Auto 59.9 % (45-73); Platelet Count 243 X10*3/uL (160-400); Red Blood Count 4.75 X10*6/uL (4.60-5.80); Red Cell Distribution Width 12.3 % (11.0-16.0); White Blood Count 5.9 X10*3/uL (4.8-10.8)
[2024-10-11 10:46] LABS: Prostate Specific Antigen Scr 0.82 ng/mL (<0.05-4.0)
[2024-10-11 10:57] LABS: Alanine Aminotransferase 23 U/L (0-40); Albumin Level 4.1 g/dL (3.5-5.0); Alkaline Phosphatase 76 U/L (39-117); Anion Gap 8 (12-20); Aspartate Amino Transferase 25 U/L (5-37); Bilirubin Total 0.4 mg/dL (0.0-1.0); Blood Urea Nitrogen 11 mg/dL (9-16); Carbon Dioxide 28 mmol/L (22-29); Chloride 105 mmol/L (96-108); Cholesterol 185 mg/dL (<200); Estimated Glomerular Filt Rate > 60; Glucose Fasting 102 mg/dL (60-99); HDL Cholesterol 48 mg/dL (>40); LDL Cholesterol Calculated 127 mg/dL (<100); Sodium 137 mmol/L (135-145); Total Protein 6.9 g/dL (6.5-8.0); Triglycerides 51 mg/dL (<150)
[2024-10-11 11:15] LABS: TSH reflex Free T4 1.15 uIU/mL (0.32-4.0); Vitamin D 25-OH Total 31.2 ng/mL (>30)
== END 2024-10-11 07:11 | disposition home or self-care (01) ==
LOC: HO.HMGCLDS 07:10
PROVIDERS: PCP Nurse Practitioner Family; Visit Provider Nurse Practitioner Family
DX: Z00.00 Encounter for general adult medical examination without abnormal findings (principal); E55.9 Vitamin D deficiency, unspecified; Z12.5 Encounter for screening for malignant neoplasm of prostate
CPT/HCPCS: 36415; 80053; 80061; 81003; 82306; 84153; 84443; 85025

== ENCOUNTER 2024-10-25 08:53 | Outpatient (REF) | payer BC, SELFPAY ==
--- OUTSIDE RECORDS SUMMARY | 2024-10-27 13:35 | XMS_ITS ---
Author Organization [facility] Address [address] [place] [address] Care Team Providers Care Nuclear Fuel Processing Technician Name Role Phone West Steven Primary Care Provider Unav ailable Black, Yoly Unavailable [phone] REASON FOR VISIT no show Encounters Encounter Location Date Provider Diagnosis [facility] [address] [place] [address] 07/14/2023 Yoly Black Plan Of Treatment No Information Progress Notes * Edmundo AMBROSIOOB:1960 (62 yo M)Acc No.[id number]:07/14/2023 Patient:?BishopYuliana petersenil :1960???Age:62 Y???Sex:Male Address:[address] [place] [address] * true * Date:? Generated for Printi walter/Jesse/eTransmitting on:?10/27/2024 01:35 PM EST
--- OUTSIDE RECORDS SUMMARY | 2024-10-27 13:35 | XMS_ITS | Patient Health Record ---
Author Organization [facility] Address [address] [place] [address] Care Team Providers Care Fashion Intern Name Role Phone West Steven Primary Care Provider Unav ailable Black, Yoly Unavailable [phone] Allergies No Known Allergies Reason For Referral No Information Medications Medication SIG (Take, Route, Frequency, Duration) Notes Start Date End Date Status Terbinafine HCl 250 MG TAKE 1 TABLET ORA LLY ONCE A DAY FOR 7 DAYS, THEN STOP FOR 3 WEEKS & REPEAT CYCLE for 30 Active Levothyroxine-Liothyronine Active Social History Tobacco Use: Social History Observation Description Date Details (start date - stop date) Current Smoker NA - NA Tobacco Use/Smoking Question Answer Notes Are you a: current smoker How often do you smoke cigarettes? every day How many cigarettes a day do you smoke? 6-10 How soon after you wake up d o you smoke your first cigarette? after 60 minutes Are you interested in quitting? Thinking about q uitting Alcohol Screen Question Answer Notes Did you have a drink containing alcohol in the p ast year? No Points 0 Interpretation Negative Tobacco use other than smoking: Question Answer Notes Are you an other tobacco user? No Problems Problem Type SNOMED Code ICD Code Onset Dates Problem Status W/U Status Risk Notes Problem Acquired hammer toe of right foot (4988321180773462) Other hammer toe(s) (acquired), right foot (M20.41) Active confirmed Problem Acquired hammer toe of left foot (2539214455159600) Other hammer toe(s) (acquired), left foot (M20.42) Active confirmed Problem Localized, primary osteoarthritis of the ankle and/or foot (118784673) Primary osteoarthrit is, right ankle and foot (M19.071) Active confirmed Plan Of Treatment Pending Test Test Name Order Date *Liver Function Test (LFT) 08/05/2022 *Liver Function Test (LFT) 12/30/2022 [id number] NAIL, 6 OR MORE 08/05/2022 43021-Jvnz Destruction, 1-14 08/05/2022 86839-Oavf Destruction, 1-14 12/30/2022 72266-Keld Destruction, 1-14 03/31/2023 04618-Ogczdvxl Plate 03/31/2023 35013-Foiaeovv Plate 08/05/2022 Insurance Providers Payer Name Payer Address Payer Phone Subscriber Number Group Number Insured Name Patient Relationship to Insured Coverage Start Date Coverage End Date Emir [facility] [address] [place] [address] [id number] Jon Alas Self - patient is the insured Medical (General) History Medical History History ICD Code Back,Hip,and Knee pain covid-19 Gall bladder problems Measles Mumps Surgical History Surgery Date(Month/Year) shoulder surgery gall bladder 2020
--- OUTSIDE RECORDS SUMMARY | 2024-10-27 13:35 | XMS_ITS ---
Author Organization [facility] Address [address] [place] [address] Care Team Providers Care Tire Building Supervisor Name Role Phone West Steven Primary Care Provider Unav ailable Yoly Peralta [phone] Encounters Encounter Location Date Provider Diagnosis [facility] [address] [place] [address] 07/14/2023 Yoly Peralta Plan Of Treatment No Information Progress Notes * Edmundo AMBROSIOOB:1960 (64 yo M)Acc No.[id number]:07/14/2023 Progress Note Patient:Jon THOMAS Provider:?Yoly Peralta DPM :1960???Age:62 Y???Sex:Male Suraj e:07/14/2023 Address:[address] [place], [place] [id number] Pcp:SALVADOR Cole Subjective: * Chief Complaints: * ??? * Medical History:? Objective: * Vitals:? Assessment: Plan: * Treatment: * Images: * The named appointment provid er may or may not be the originator of this progress note, and it is not deemed complete until electronically signed by the appointment provider. Sign off status: Pending * Provider:?Yoly Peralta DPM Date:?2022 Generated for Dimple watson/Jesse/eTransmitting on:?10/27/2024 01:35 PM EST
== END 2024-10-25 08:54 | disposition home or self-care (01) ==
LOC: HO.HMGCX 08:53
PROVIDERS: PCP Nurse Practitioner Family; Visit Provider Nurse Practitioner Family
DX: M54.50 Low back pain, unspecified (principal)
CPT/HCPCS: 72100

== ENCOUNTER 2024-12-13 08:51 | Outpatient (REF) | payer BC, SELFPAY ==
--- NOTE | ~2024-12-13 | XR_ITS ---
CLINICAL HISTORY: PRIMARY OA, LEFT HIP Pelvis one view Comparison: None Findings: No acute fracture or dislocation identified. Severe degenerative change in left hip joint. Moderate degenerative change in right hip joint. No radiopaque foreign body noted. Impression: Degenerative change without acute process This document has been electronically signed by: William Pearson MD on 12/13/2024 21:00:16
--- NOTE | ~2024-12-13 | XR_ITS ---
CLINICAL HISTORY: M16.12 PRIMARY OSTEOARTHRITIS LEFT HIP Left hip two views Comparison: None Findings: No acute fracture or dislocation identified. Severe degenerative change in left hip. No radiopaque foreign body noted. Impression: No acute bony abnormality This document has been electronically signed by: William Pearson MD on 12/13/2024 20:58:09
--- OUTSIDE RECORDS SUMMARY | 2024-12-13 13:07 | XMS_ITS | Clinical Summary ---
Author Organization [facility] Address [address] [place] [address] Care Team Providers Care Slitter And Rewinder Machine Operator Name Role Phone Unavailable Primary Care Provider Unavailabl e Source Comments PLEASE NOTE, if this patient is a minor, it may be UNLAWFUL to discuss sensitive information that is contained in these records (such as FAMILY PLANNING, MENTAL HEALTH or SUBSTANCE ABUSE) with the minor patient's parent or other person without the patient's specific authorization.[facility] Immunizations Name Administration Dates Next Due Moderna COVID-19 Vaccine, re d cap blue label, 12+ Primary Series 02/09/2022,03/07/2021,02/07/2021 Social History Tobacco Use Types Packs/Day Years Used Date Smoking Tobacco: Never Assessed Social Connections Answer Date Recorded Connectedness 0 07/29/2024 Financial Resource Strain Answer Date R ecorded Financial Resource Strain 0 2020 Stress Answer Date Recorded Stress 0 10/31/2021 Physical Activity Answer Date Recorded Physical Activity 0 10/31/2021 Food Insecurity Answer Date Recorded Food 0 08/12/2024 Transportation Needs Answer Date Record ed Transportation 0 10/31/2021 Housing Stability Answer Date Recorded Housing 0 10/31/2021 Safety and Environment Answer Date Red rded Safety 0 10/31/2021 Utilities Answer Date Recorded Utilities 0 10/31/2021 Employment Answer Date Recorded Stress 0 07/29/2024 Sex and Gender Information Value Date Recorded Sex Assigned at Not on file Legal Sex Male 1:04 PM PDT Gender Identity Not on file Sexual Orientation Not on file Plan of Treatment Health Maintenance Due Date Last Done Comments Diabetes Screening 1960 Hepatitis C Screening 1960 Lipid Screening 1960 Tobacco Screening 1960 Annual Preventive Care Visit 1976 Hypertension Screening (#1) 1976 CT Colonography 2003 Colonoscopy 2003 Colorectal Cancer Screening 2003 FIT/gFOBT 2003 Fecal DNA 2003 Flexible Sigmoidoscopy 2003 Imm-Zoster, Recombinant (1 of 2) 2008 Imm-Pneumococcal 65+ (2 of 2 - PCV) 12/01/201912/01 Abdominal Aortic Aneurysm Screening 2023 Falls Prevention 2023 Evm-RFMVB-10 (4 - season) 2024 02/09/2022, 03/07/2021, 02/07/2021 Imm-Influenza (#1) 2024 09/21/2019, 10/06/2018 Alcohol and Drug Screen 11/17/2024 Depression Annual Screen 11/17/2024 Imm-DTaP/Tdap/Td (2 - Td or Tdap) 11/17/2026 017 Insurance [employer] [facility]
--- OUTSIDE RECORDS SUMMARY | 2024-12-13 13:07 | XMS_ITS | Clinical Summary ---
Author Organization [facility] Address [address] [place] [address] Care Team Providers Care Vinyl Installer Name Role Phone Maria Antoniawil Femi NP Primary Care Provider Surgical History Surgery Date Site/Laterality Comments CHOLECYSTECTOMY 04/09/2021 N/A PROCEDURE: [place] LAPAROSCOPY SURG CHOLECYSTECTOMY; COMMENT: Asiya Lou Medical History Medical History Date Comments Cholelithiasis DX:Cholelithiasi s Abdominal hernia DX:Abdominal he rnia Social History Tobacco Use Types Packs/Day Years Used Date Smoking Tobacco: Former Smokeless Tobacco: Never Alcohol Use Standard Drinks/Week Comments Yes 0 (1 standard drink = 0.6 oz pur e alcohol) Sex and Gender Information Value Date Recorded Sex Assigned at Not on file Gender Identity Not on file Sexual Orientation Not on file Obstetrics History Plan of Treatment Health Maintenance Due Date Last Done Comments DTaP,Tdap,and Td Vaccines (1 - Tdap) 1977 Zoster Vaccines (1 of 2) 2008 Abdominal Aortic Aneurysm (A AA) Screen 10/16/2022 Cholesterol Screening (Lipid Panel) 10/16/2022 Colorectal Cancer Screening: Colonoscopy 10/16/2022 Depression Screening 10/16/2022 Hepatitis C Screening 10/16/2022 Social Influencers of Health Screening 10/16/2022 Falls Risk Assessment 2023 Pneumococcal Vaccine: 65+ Ye ars (1 of 1 - PCV) 2023 COVID-19 Vaccine ( - 2023-2 5 season) 2024 Influenza Vaccine (#1) 2024 RSV Immunization Patients 60 + Years Old (1 - 1-dose 75+ series) 2033 HIB Vaccines Aged Out No longer eligi ble based on patient's age to complete this topic HPV Vaccines Aged Out No longer eligi ble based on patient's age to complete this topic Hepatitis A Vaccines Aged Out No long er eligible based on patient's age to complete this topic Hepatitis B Vaccines Aged Out No long er eligible based on patient's age to complete this topic IPV Vaccines Aged Out No longer eligi ble based on patient's age to complete this topic MMR Vaccines Aged Out No longer eligi ble based on patient's age to complete this topic Meningococcal ACWY Vaccine Aged Out N o longer eligible based on patient's age to complete this topic RSV Immunization Patients Un shmuel 20 months Aged Out No longer eligible b ased on patient's age to complete this topic Varicella Vaccines Aged Out No longer eligible based on patient's age to complete this topic Care Teams Vinyl Installer Relationship Specialty Start Date End Date West Galarza NP [address] [facility] [place] PCP - General 04/25/22
--- OUTSIDE RECORDS SUMMARY | 2024-12-13 13:07 | XMS_ITS ---
Author Organization [facility] Address [address] [place] [address] Care Team Providers Care Field Auditor Name Role Phone West Steven Primary Care Provider Unav ailable Yoly Peralta [phone] Encounters Encounter Location Date Provider Diagnosis [facility] [address] [place] [address] 07/14/2023 Yoly Peralta Plan Of Treatment No Information Progress Notes * Edmundo AMBROSIOOB:1960 (64 yo M)Acc No.[id number]:07/14/2023 Progress Note Patient:Jon THOMAS Provider:?Yoly Peralta DPM :1960???Age:62 Y???Sex:Male Suraj e:07/14/2023 Address:[address] [place], [place] [id number] Pcp:SALVADOR Cole Subjective: * Chief Complaints: * ??? * Medical History:? Objective: * Vitals:? Assessment: Plan: * Treatment: * Images: * The named appointment provid er may or may not be the originator of this progress note, and it is not deemed complete until electronically signed by the appointment provider. Sign off status: Pending * Provider:?Yoly Peratla DPM Date:?2022 Generated for Dimple watson/Jesse/eTransmitting on:?12/13/2024 01:07 PM EST
--- OUTSIDE RECORDS SUMMARY | 2024-12-13 13:07 | XMS_ITS | Patient Health Record ---
Author Organization [facility] Address [address] [place] [address] Care Team Providers Care Student Support Advisor Name Role Phone West Steven Primary Care Provider Unav ailable Black, Yoly Unavailable [phone] Allergies No Known Allergies Reason For Referral [...] Problem Acquired hammer toe of right foot (4223179725793873) Other hammer toe(s) (acquired), right foot (M20.41) Active confirmed Problem Acquired hammer toe of left foot (6134493630607510) Other hammer toe(s) (acquired), left foot (M20.42) Active confirmed Problem Localized, primary osteoarthritis of the ankle and/or foot (789342233) Primary osteoarthrit is, right ankle and foot (M19.071) Active confirmed Plan Of Treatment Pending Test Test Name Order Date *Liver Function Test (LFT) 08/05/2022 *Liver Function Test (LFT) 12/30/2022 [id number] NAIL, 6 OR MORE 08/05/2022 [id number] Destruction, 1-14 08/05/2022 60626-Zudf Destruction, 1-14 12/30/2022 43412-Osgj Destruction, 1-14 03/31/2023 04422-Ykjaqzyb Plate 03/31/2023 81901-Nvfzowbx Plate 08/05/2022 Insurance Providers Payer Name Payer Address Payer Phone Subscriber Number Group Number Insured Name Patient Relationship to Insured Coverage Start Date Coverage End Date Emir [facility] [address] [place] [address] [id number] Jon Alas Self - patient is the insured Medical (General) History Medical History History ICD Code Back,Hip,and Knee pain covid-19 Gall bladder problems Measles Mumps Surgical History Surgery Date(Month/Year) shoulder surgery gall bladder 2020
--- OUTSIDE RECORDS SUMMARY | 2024-12-13 13:08 | XMS_ITS ---
Author Organization [facility] Address [address] [place] [address] Care Team Providers Care Staff Pharmacist Name Role Phone Wset Steven Primary Care Provider Unav ailable Black, Yoly Unavailable [phone] REASON FOR VISIT no show Encounters Encounter Location Date Provider Diagnosis [facility] [address] [place] [address] 07/14/2023 Yoly Black Plan Of Treatment No Information Progress Notes * Edmundo AMBROSIOOB:1960 (62 yo M)Acc No.[id number]:07/14/2023 Patient:?BishopJon petersen :1960???Age:62 Y???Sex:Male Address:[address] [place] [address] * true * Date:? Generated for Nolani walter/Jesse/eTransmitting on:?12/13/2024 01:07 PM EST
== END 2024-12-13 08:52 | disposition home or self-care (01) ==
LOC: HO.HMGCX 08:51
PROVIDERS: PCP Nurse Practitioner Family; Visit Provider Physician Assistant
DX: M16.12 Unilateral primary osteoarthritis, left hip (principal)
CPT/HCPCS: 72170; 73502

== ENCOUNTER → 2024-12-13 09:07 | Outpatient (BNV) | payer BC, SELFPAY | PROVIDERS: PCP Nurse Practitioner Family; Visit Provider Radiology Diagnostic Radiology | DX: M16.12 Unilateral primary osteoarthritis, left hip (principal) | CPT/HCPCS: 72170; 73502 ==

== ENCOUNTER → 2025-07-01 12:28 | Outpatient (BNVA) | payer OTHER, SELFPAY | PROVIDERS: PCP Nurse Practitioner Family; Visit Provider Physician Assistant | DX: S60.361A Insect bite (nonvenomous) of right thumb, initial encounter (principal); T63.441A Toxic effect of venom of bees, accidental (unintentional), initial encounter; Y92.9 Unspecified place or not applicable; R60.9 Edema, unspecified | CPT/HCPCS: 99203 ==

== ENCOUNTER 2025-10-24 09:58 | Outpatient (REF) | payer BC, SELFPAY ==
--- NOTE | ~2025-10-24 | XR_ITS ---
EXAMINATION: XR CHEST CLINICAL INFORMATION: R05.9 - Cough, unspecified COMPARISON: None available. TECHNIQUE: PA and lateral views FINDINGS: Pulmonary reticular pattern. No gross consolidation, pleural fissure pneumothorax. Questionable 1 mm pulmonary nodule versus cross-section of the vessel, right lung. Cardiomediastinal silhouette size is normal. Multilevel spondylosis and a shaped curvature of the thoracolumbar spine. XR/XR chest 2V IMPRESSION: Concerning chronic interstitial lung disease without acute airspace disease. Electronically signed by: Daniel Khan MD 10/24/2025 11:30 AM EST
== END 2025-10-24 09:59 | disposition home or self-care (01) ==
LOC: HO.HMGCX 09:58
PROVIDERS: PCP Nurse Practitioner Family; Visit Provider Nurse Practitioner Family
DX: R06.02 Shortness of breath (principal); R05.9 Cough, unspecified; R09.89 Other specified symptoms and signs involving the circulatory and respiratory systems; F17.200 Nicotine dependence, unspecified, uncomplicated; R07.9 Chest pain, unspecified; R50.9 Fever, unspecified
CPT/HCPCS: 71046; 94640

== ENCOUNTER 2025-10-24 09:58 | Outpatient (AMB) | payer BC, SELFPAY ==
--- NOTE | 2025-10-24 10:19 | MHC.OFFWIV ---
Intake Vital Signs 10/24/25 10:22 Height 5 ft 11 in Weight 187 lb BMI 26.1 BP 132/80 Blood Pressure Location Lt brachial Position Sitting Pulse 86 Pulse Source Pulse Oximeter Temp 97.8 F Temp Source Oral Pulse Oximetry (%) 95 Oxygen Delivery Method Room Air Intake Visit Reasons: EP cough upset stomach Intake Note: pt presents with chest congestion with dry coughing causing chest discomfort, sinus congestion x3 days Patient Tobacco Use Status: Current everyday Tobacco user Allergies atorvastatin Allergy (Unknown, Verified 10/24/25 10:24) Hives Medication List - Last Reconciled 10/24/25 by Mallory Carmen NP levothyroxine 100 mcg PO DAILY Do you need a note to return to daycare/school/sports/work: No HPI HPI Comments History of Present Illness Details 65-year-old male presents with 3 days of chest congestion, dry cough causing chest discomfort, and sinus congestion. Reports wheezing and shortness of breath, especially with exertion. States he has had chills but denies fever. Denies nausea or vomiting. He is a chronic cigarette smoker (?? pack/day). No known history of asthma or COPD. No recent sick contacts. 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 Social History Housing: House Alcohol intake: current Alcohol intake frequency: holidays/special occasions only Patient Tobacco Use Status: Current everyday Tobacco user Cigarettes Per Day: 12 e-Cigarette/Vaping Use: Never Used Second Hand Smoke Exposure: No service: No Current occupational status: employed Current occupation: [employer] Current occupational exposures/hazards: No Cognitive needs: No Hearing needs: No Vision needs: No Review of Systems Const All systems reviewed & are unremarkable except as noted in HPI and below Physical Exam Vital Signs: Last Vital Signs Temp 97.8 F 10/24/25 10:22 Pulse 86 10/24/25 10:22 BP 132/80 10/24/25 10:22 Pulse Ox 95 10/24/25 10:22 Oxygen Delivery Method Room Air 10/24/25 10:22 BMI result Body Mass Index 26.1 Const General: no acute distress Nutritional Appearance: well nourished Orientation/consciousness: patient oriented x3 HEENT Head: Yes normocephalic Ears: TM abnormal with fluid behind the TM General nose exam: Abnormal mucous membranes and turbinates present boggy Face and sinus: Yes sinuses nontender Mouth: moist mucous membranes Throat: Yes uvula midline Resp Effort & Inspection: normal respiratory effort, able to speak in complete sentences and Actively coughing Auscultation: no crackles, no rales, rhonchi and wheezes Cardio Heart sounds: S1 normal heart sound present and S2 normal heart sound present Neuro General: patient oriented x3 Office Procedures Nebulizer Treatment Nebulizer Treatment 15371-Auprvulod/MDI RX initial, or Nebulizer Subsequent Treatment Office Meds ipratropium 0.5 mg-albuterol 3 mg (2.5 mg base)/3 mL nebulization soln Performing Provider: Mallory Carmen NP Performing Location: [facility] [place] [facility] Administered by: Mallory Carmen NP on 10/24/25 11:30 Dose Route Admin Location Dispensed Lot Number Expiration Date [facility] Scrap Cutter 3 mL inhalation 3 mL Assessment & Plan Assessment & Plan (1) Cough: Code(s): R05.9 - Cough, unspecified Plan: Ordered COVID/Flu/RSV. Neb Tx in Office. Ordered Zpack. Ordered chest Xray. Worsening SOB, chest pain, high fever, inability to catch breath, O? sat < 92%, or symptoms not improving in 3?5 days. Orders: Orders XR chest 2V Today R05.9 - Cough, unspecified SARS-CoV2/FLU/RSV Today R09.89 - Other specified symptoms and signs involving the circulatory and respiratory systems AMB Nebulizer Treatment Today R05.9 - Cough, unspecified Medications: New azithromycin 500 mg PO DAILY 3 tabs 0RF 3 days R05.9 - Cough, unspecified prednisone 20 mg PO DAILY 10 tabs 0RF R05.9 - Cough, unspecified benzonatate 100 mg PO BID 60 caps 0RF R05.9 - Cough, unspecified Coding Level of Care Code Est Pt Level 4 (27342) Diagnoses Cough R05.9 CPT Codes Nebulizer Treatment - Nebulizer Treatment, initial or subsequent: 14386-Ygvpbzmnk/MDI RX initial, or Nebulizer Subsequent Treatment ([id number]) Time Spent (min) 20
[2025-10-24 10:22] VITALS: BP 132/80; PULSE 86; TEMP 36.6; O2SAT 95; BMI 26.1
== END 2025-10-24 11:46 | disposition home or self-care (01) ==
PROVIDERS: PCP Nurse Practitioner Family; Visit Provider Nurse Practitioner Family
DX: R05.9 Cough, unspecified (principal)

== ENCOUNTER 2025-10-24 11:15 | Outpatient (REF) | payer BC, SELFPAY ==
[2025-10-24 15:58] LABS: Resp Syncy Virus RNA Qual PCR NEGATIVE (Negative); SARS COV2 PCR INHOUSE NEGATIVE (Negative)
== END 2025-10-24 11:16 | disposition home or self-care (01) ==
LOC: HO.LAB 11:15
PROVIDERS: Visit Provider Nurse Practitioner Family
DX: R05.9 Cough, unspecified (principal)
CPT/HCPCS: 87637

== ENCOUNTER → 2025-10-24 11:18 | Outpatient (BNV) | payer BC, SELFPAY | PROVIDERS: PCP Nurse Practitioner Family; Visit Provider Radiology Diagnostic Radiology | DX: R05.9 Cough, unspecified (principal) | CPT/HCPCS: 71046 ==

== ENCOUNTER 2025-11-15 09:24 | Outpatient (AMB) | payer BC, SELFPAY ==
[2025-11-15 09:27] VITALS: BP 114/62; PULSE 81; RESP 16; O2SAT 98; BMI 26.8
--- NOTE | 2025-11-15 09:27 | MHC.PC.OV ---
Vital Signs 11/15/25 09:27 Height 5 ft 11 in Weight 192 lb BMI 26.8 BP 114/62 Blood Pressure Location Lt brachial Position Sitting Respiration 16 Pulse 81 Pulse Source Pulse Oximeter Pulse Oximetry (%) 98 Oxygen Delivery Method Room Air Intake Visit Reasons: Annual PE Political Organizer Required: No Accompanied by: Self / Same As Patient Allergies atorvastatin Allergy (Unknown, Verified 11/15/25 09:31) Hives Medication List - Last Reconciled 11/15/25 [facility] levothyroxine 100 mcg PO DAILY Tobacco use date assessed: 11/15/25 Fall risk assessment: 2 + Falls in past year Last assessed Fall Risk: 11/15/25 Dental Screening Dental Screen Date: 11/15/25 Did you have a dental visit in the last 12 months?: Yes Did you have a dental problem in the last 6 months where you did not have access to dental care?: No Was dental information given to patient?: Patient has dentist HPI Annual PE HPI Details History of Present Illness The patient is a 65 year old male presenting for a physical exam. He reports doing well overall. He is on levothyroxine 100 mcg. He has a history of seborrheic keratosis on his forehead and right sikhism, for which he has seen a hand button splitter in the past. Social history is significant for continued smoking. For health maintenance, his colon cancer screening is up to date, and he participates in a low-dose CT scan program for lung cancer screening. Health Maintenance Plan includes obtaining fasting lab work with an added PSA for prostate cancer screening. The patient's colon cancer screening is documented as up to date. He will continue with the low-dose CT scan program at [facility] for lung cancer screening. The patient declined all vaccinations during this visit. Social History - The patient continues to smoke. Review of Systems - Constitutional: Reports doing quite well overall. - Cardiovascular: Denies chest pain. - Respiratory: Denies shortness of breath. - Gastrointestinal: Denies abdominal pain, blood in stool, constipation, or diarrhea. - Psychiatric: Denies suicidal ideation or homicidal ideation. Physical Exam General: Cooperative, healthy appearing, comfortable, no acute distress and well developed Orientation: Patient oriented x3 Limitations: No limitations Head: Normal to inspection Ears: Hearing grossly normal bilaterally, ear wax noted bilaterally, TM is easily seen after ear lavage Nose: Normal external nose present Face and sinus: Normal facial exam Eyes: Appearance normal, both eyes and all related structures Neck: Normal visual inspection and Yes full ROM Respiratory: Scattered wheezes throughout, slightly diminished Cardiovascular: Regular rate and rhythm. Normal S1 and S2 GI: Normal to inspection. Soft to palpation and nontender : Testicles without masses/lesions and no hernias appreciated Skin: ? large Seborrheic keratosis noted on forehead and right sikhism region Neuro: Patient oriented x3 Extremities: Normal to inspection Results Plan 1. Seborrheic Keratosis For the large seborrheic keratosis on his forehead and right sikhism, the plan is for the patient to follow up with dermatology, whom he has seen in the past. 2. Tobacco Use Disorder And Wheezing The patient continues to smoke and was noted to have scattered wheezes with slightly diminished breath sounds on exam. He remains enrolled in a low-dose CT scan screening program for surveillance. 3. Hypothyroidism The patient will continue his current medication of levothyroxine 100 mcg daily. 4. Cerumen Impaction, Bilateral Bilateral cerumen impaction was noted and successfully resolved with an in-office ear lavage, after which the tympanic membranes were easily visualized. Discussion Notes I discussed the plan for an upcoming physical, which will include fasting lab work and a PSA test. I advised him to follow up with dermatology for the large seborrheic keratoses on his forehead and right sikhism. We noted his continued participation in the low-dose CAT scan program due to his smoking history. I also documented that his colon screening is up to date and that he declined all vaccinations today. Patient Instructions - You will need to get fasting lab work done in the near future, which will include a PSA test to check your prostate. - Please make an appointment to see a skin doctor (hand button splitter) for the large spots on your forehead and sikhism. - Continue taking your levothyroxine 100 mcg medication as prescribed. - Continue to participate in the low-dose CT scan program for lung screening. - Your colon cancer screening is up to date. - You chose to decline all vaccinations during today's visit. 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 Social History Housing: House Alcohol intake: current Alcohol intake frequency: holidays/special occasions only Patient Tobacco Use Status: Current everyday Tobacco user Cigarettes Per Day: 12 e-Cigarette/Vaping Use: Never Used Second Hand Smoke Exposure: No service: No Current occupational status: employed Current occupation: [employer] Current occupational exposures/hazards: No Cognitive needs: No Hearing needs: No Vision needs: No Questionnaire PHQ-9 Over the last 2 weeks, how often have you been bothered by any of the following problems? 1. Little interest or pleasure in doing things: not at all 2. Feeling down, depressed, or hopeless: not at all 3. Trouble falling or staying asleep, or sleeping too much: not at all 4. Feeling tired or having little energy: not at all 5. Poor appetite or overeating: not at all 6. Feeling bad about yourself - or that you are a failure or have let yourself or your family down: not at all 7. Trouble concentrating on things, such as reading the newspaper or watching television: not at all 8. Moving or speaking so slowly that other people could have noticed. Or the opposite - being so fidgety or restless that you have been moving around a lot more than usual: not at all 9. Thoughts that you would be better off or of hurting yourself in some way: not at all Total score: 0 Depression Screening Interpretation: Negative Depression Screening Done: Yes 36525 - PHQ-9 Billing: Yes Source: Developed by Drs. Cornelius Woodruff, Bethany Petersen, Arvind Cortez and colleagues, with an educational chandni from [employer]. Thrive Questionnaire Date Thrive assessed: 11/08/25 I am a: Patient What is your living situation today?: I have a steady place to live Within the past 12 months, did the food you bought not last and you didn't have the money to get more?: Never true Within the past 12 months, did you worry whether your food would run out before you got money to buy more?: Never true Do you have trouble paying for medicines?: No Do you have trouble getting transportation to medical appointments?: No Do you have trouble paying your heating and electricity bill?: No Do you have trouble taking care of your child, family member or friend?: No Do you have trouble with day-to-day activities such as bathing, preparing meals, shopping, managing finances, etc.?: No Are you currently unemployed and looking for a job?: No Are you interested in more education?: No Currently or been in a relationship where the following occur: No concerns reported THRIVE Score: 0 ANDREW-7 AMB Questionnaire ANDREW-7 Date ANDREW - 7 assessed: 09/27/24 Source: Developed by Drs. Cornelius Woodruff, Bethany Petersen, Arvind Cortez and colleagues, with an educational chandni from [employer]. Physical exam (Primary Care) Vital Signs: Last Vital Signs Pulse 81 11/15/25 09:27 Resp 16 11/15/25 09:27 BP 114/62 11/15/25 09:27 Pulse Ox 98 11/15/25 09:27 Oxygen Delivery Method Room Air 11/15/25 09:27 BMI result Body Mass Index 26.8 Tobacco/Smoking Status: Tobacco use Status Tobacco use date assessed 11/15/25 11/15/25 09:34 Patient Tobacco Use Status Current everyday Tobacco 11/15/25 09:30 e-Cigarette/Vaping Use Never Used 11/15/25 09:30 PHQ-9: PHQ-9 Score PHQ-9: Total score 0 11/15/25 09:34 Depression Screening Interpretation: Negative Thrive Assessment: Date of Thrive Assessment Date Thrive assessed 11/08/25 11/15/25 09:30 Currently or been in a relationship where the following occur: No concerns reported Office Procedures Cerumen Removal From which ear canal was the cerumen removed: bilateral Removal: irrigation Notes: patient tolerated procedure well, no complications and ear canal clear 23970-Gso Irrigation/Lavage EKG 22890-Osrkeandfaqqfysaj, Complete Coding Level of Care Code Est Pt Level 3 (76776) Est Pt Prev Care >65y(00118) Diagnoses Encounter for routine adult physical exam with abnormal findings Z00. Screening PSA (prostate specific antigen) Z12.5 Skin lesions L98.9 Excessive cerumen in both ear canals H61.23 CPT Codes Office Procedure - CPT: 27089-Htq Irrigation/Lavage ([id number]) EKG - CPT: 20037-Qyjohqlxmpakncjul, Complete ([id number]) Additional Codes PHQ-9 - 24036 - PHQ-9 Billing: Yes ([id number]) Assessment & Plan Assessment & Plan (1) Encounter for routine adult physical exam with abnormal findings: Code(s): Z00. - Encounter for general adult medical examination with abnormal findings Category: Medical (2) Screening PSA (prostate specific antigen): Code(s): Z12.5 - Encounter for screening for malignant neoplasm of prostate Category: Medical (3) Skin lesions: Code(s): L98.9 - Disorder of the skin and subcutaneous tissue, unspecified Category: Medical (4) Excessive cerumen in both ear canals: Code(s): H61.23 - Impacted cerumen, bilateral Category: Medical Plan . Orders: Orders Comprehensive [place]. Panel Fast Today Z00. - Encounter for general adult medical examination with abnormal findings Lipid Panel Today Z00. - Encounter for general adult medical examination with abnormal findings Prostate Specific Antigen Scr Today Z12.5 - Encounter for screening for malignant neoplasm of prostate AMB EKG-In Office Today Z00. - Encounter for general adult medical examination with abnormal findings Complete Blood Count Auto Diff Today Z00. - Encounter for general adult medical examination with abnormal findings TSH reflex Free T4 Today Z00. - Encounter for general adult medical examination with abnormal findings UA CC w/rflx Micro + Cult Today Z00. - Encounter for general adult medical examination with abnormal findings Referrals Dermatology Referral L98.9 - Disorder of the skin and subcutaneous tissue, unspecified
--- OUTSIDE RECORDS SUMMARY | 2025-11-15 11:58 | XMS_ITS | Clinical Summary ---
Author Organization [facility] [address] [facility] Address [address] [place] [address] Phone Care Team Providers Care Servicer Coin Machines Name Role Phone West Galarza NP Primary Care Provider Allergies No known active allergies Surgical History Surgery Date Site/Laterality Comments CHOLECYSTECTOMY 04/09/2021 N/A PROCEDURE: AR LAPAROSCOPY SURG CHOLECYSTECTOMY; COMMENT: Asiya Lou Medical History Medical History Date Comments Cholelithiasis DX:Cholelithiasi s Abdominal hernia DX:Abdominal he rnia Social History Tobacco Use Types Packs/Day Years Used Date Smoking Tobacco: Former Smokeless Tobacco: Never Alcohol Use Standard Drinks/Week Comments Yes 0 (1 standard drink = 0.6 oz pur e alcohol) Sex and Gender Information Value Date Recorded Sex Assigned at Male 07/07/2025 10:10 PM EDT Legal Sex Male 2:17 PM EST Gender Identity Not on file Sexual Orientation Not on file Plan of Treatment Health Maintenance Due Date Last Done Comments Colorectal Cancer Screening: Colonoscopy 1960 Zoster Vaccines (1 of 2) 2008 Pneumococcal Vaccine: 50+ Years (2 of 2 - PCV) 12/01/2019 12/01/2018 Abdominal Aortic Aneurysm (AAA) Screen 10/16/2022 Cholesterol Screening (Lipid Panel) 10/16/2022 Hepatitis C Screening 10/16/2022 Social Influencers of Health Screening 10/16/2022 Falls Risk Assessment 2023 Depression Screening 11/17/2024 COVID-19 Vaccine ( season) 2025 02/13/2023, 02/09/2022, 03/07/2021, Additional history exists Influenza Vaccine (#1) 2025 09/21/2019, 11/20/ 2018 DTaP,Tdap,and Td Vaccines (2 - Td or Tdap) 11/17/2026 11/17/2016 RSV Immunization Adult Patients Completed 10/02/2024 HIB Vaccines Aged Out No longer eligi [...] patient's age to complete this topic Meningococcal B Vaccine Aged Out No l onger eligible based on patient's age to complete this topic RSV Immunization Patients Under 20 months Aged Out No longer eligible based on patient's age to complete this topic Varicella Vaccines Aged Out No longer eligible based on patient's age to complete this topic Insurance MEDICARE [facility] Care Teams Servicer Coin Machines Relationship Specialty Start Date End Date West Galarza NP [address] [place], [place] PCP - General 04/25/22
--- OUTSIDE RECORDS SUMMARY | 2025-11-15 11:58 | XMS_ITS | Patient Health Record ---
Author Organization [facility] Address [address] [facility] [place] [address] Care Team Providers Care Referral Agent Name Role Phone West Steven Primary Care Provider Unav ailable Black, Yoly Unavailable [phone] Allergies No Known Allergies Reason For Referral No Information Medications Medication SIG (Take, Route, Frequency, Duration) Notes Start Date End Date Status Terbinafine HCl 250 MG TAKE 1 TABLET ORA LLY ONCE A DAY FOR 7 DAYS, THEN STOP FOR 3 WEEKS & REPEAT CYCLE; Duration: 30 Active Levothyroxine-Liothyronine Active Social History Tobacco [...] Problem Acquired hammer toe of right foot (7603652189098323) Other hammer toe(s) (acquired), right foot (M20.41) Active confirmed Problem Acquired hammer toe of left foot (5598647209497497) Other hammer toe(s) (acquired), left foot (M20.42) Active confirmed Problem Localized, primary osteoarthritis of the ankle and/or foot (183028163) Primary osteoarthrit is, right ankle and foot (M19.071) Active confirmed Plan Of Treatment Pending Test Test Name Order Date *Liver Function Test (LFT) 08/05/2022 *Liver Function Test (LFT) 12/30/2022 [id number]-JZZNIBK NAIL, 6 OR MORE 08/05/2022 04848-Ymqk Destruction, 1-14 08/05/2022 15871-Jtdb Destruction, -14 12/30/2022 41331-Icjf Destruction, -14 03/31/2023 36676-Olizvbxp Plate 03/31/2023 85403-Srmtsvdx Plate 08/05/2022 Insurance Providers Payer Name Payer Address Payer Phone Subscriber Number Group Number Insured Name Patient Relationship to Insured Coverage Start Date Coverage End Date Emir [facility] [address] [place] [address] [id number] Jon Alas Self - patient is the insured Medical (General) History Medical History History ICD Code Back,Hip,and Knee pain covid-19 Gall bladder problems Measles Mumps Surgical History Surgery Date(Month/Year) shoulder surgery gall bladder 2020
--- OUTSIDE RECORDS SUMMARY | 2025-11-15 11:58 | XMS_ITS | Patient Health Record ---
Author Organization [facility] Address [address] [place] [address] Care Team Providers Care Internetworking Technician Name Role Phone RENU FORBES Primary Care Provider Rickie Merrill Jr Unavailable [phone] Reason For Referral No Information Medications Medication SIG (Take, Route, Frequency, Duration) Notes Start Date End Date Status Vitamin D Active Colyte with Flavor Packs 240 GM Solution Reconstituted As directed Orally Over the specified time.; Duration: 1 day(s) Active Social History Tobacco Use: Social History Observation Description Date Details (start date - stop date) Current Smoker NA - NA Social History Drugs/Alcohol: Social Info Question Answer Notes Alcohol Screen Did you have a drink containing alcohol in the past year? Yes How often did you have a drink containing alcohol in the past year? Monthly or less (1 point) How many drinks did you have on a typical day when you were drinking in the past year? 1 or 2 drinks (0 point) How often did you have 6 or more drinks on one occasion in the past year? Never (0 point) Points 1 Interpretation Negative Tobacco Use: Social Info Question Answer Notes Tobacco Use/Smoking Patient is a current smoker How often do you smoke cigarettes? every day How many cigarettes a day do you smoke? 11-20 How soon after you wake up do you smoke your first cigarette? 31-60 minutes Are you interested in quitting? Ready to quit Additional Details Category Social Info Options Details Miscellaneous: Marital status: single Occupation: building mainten ance Living with: significant othe r Problems Problem Type SNOMED Code ICD Code Onset Dates Problem Status W/U Status Risk Notes Problem Pre-procedure evaluation check (482872220) Encounter for other preprocedural examination (Z01.818) Active confirmed Problem Screening for colon cancer (740209900) Screening for colon cancer (Z12.11) Active confirmed Plan Of Treatment Future Test Test Name Order Date COLONOSCOPY 03/20/2018 Insurance Providers Payer Name Payer Address Payer Phone Subscriber Number Group Number Insured Name Patient Relationship to Insured Coverage Start Date Coverage End Date [facility] [address] [place] [address] [phone] [id number] JOSE AMBROSIO Self - patient is the insured Medical (General) History Medical History History ICD Code elevated cholesterol Surgical History Surgery Date(Month/Year) lung surgery due to a collapsed lung 197 8? shoulder dislocation 1977?
== END 2025-11-15 11:21 | disposition home or self-care (01) ==
LOC: HO.HMCC 09:24
PROVIDERS: PCP Nurse Practitioner Family; Visit Provider Nurse Practitioner Family
DX: Z00.01 Encounter for general adult medical examination with abnormal findings (principal); L82.1 Other seborrheic keratosis; H61.23 Impacted cerumen, bilateral; R06.2 Wheezing; E03.9 Hypothyroidism, unspecified; F17.210 Nicotine dependence, cigarettes, uncomplicated; Z12.5 Encounter for screening for malignant neoplasm of prostate

== ENCOUNTER → 2025-11-15 09:24 | Outpatient (BNVA) | payer BC, SELFPAY | PROVIDERS: PCP Nurse Practitioner Family; Visit Provider Nurse Practitioner Family | DX: H61.23 Impacted cerumen, bilateral (principal); Z00.01 Encounter for general adult medical examination with abnormal findings; Z13.31 Encounter for screening for depression | CPT/HCPCS: 69209; 93005; 96127 ==